=== PATIENT | male | born 1955 | race Caucasian/White ===

== ENCOUNTER 2022-08-03 17:10 | Emergency (ER) | payer MEDICARE, MEDICAID ==
[~2022-08-03] VITALS: Ht 175.3 cm; Wt 210.0 kg
[~2022-08-03 17:10] MED LIST: DILT-94 PO; DIPH-1055 PO; ENTE0.5T12 PO; GABA300C PO; HYDR-3972 PO; IBUP-1985 PO; LISI1TAB51 PO; LOPE2CAP PO; ONDA4TAB12 SL; SERT-434 PO; TRAZ-256 PO
[2022-08-03 17:20] VITALS: BP 116/70
--- NOTE | 2022-08-03 17:46 | NUR ---
attempt ekg, unable to locate patient at this time. will attempt again
[2022-08-03 17:52] LABS: BASOPHILS # (AUTO) 0.1 X10'3 (0-0.2); BASOPHILS % (AUTO) 1.4 % (0-1); EOSINOPHILS # (AUTO) 0.1 X10'3 (0-0.9); EOSINOPHILS % (AUTO) 2.5 % (0-6); HEMATOCRIT 42.7 % (42.0-52.0); HEMOGLOBIN 15.1 g/dl (14.0-17.9); LYMPHOCYTES # (AUTO) 1.9 X10'3 (1.1-4.8); LYMPHOCYTES % (AUTO) 37.4 % (21-51); MEAN CORPUSCULAR HGB CONC 35.3 g/dL (33.0-36.5); MEAN PLATELET VOLUME 6.8 FL (7.4-10.4); MONOCYTES # (AUTO) 0.5 X10'3 (0-0.9); MONOCYTES % (AUTO) 9.2 % (2-12); NEUTROPHILS # (AUTO) 2.5 X10'3 (1.8-7.7); NEUTROPHILS % (AUTO) 49.5 % (42-75); PLATELET COUNT 199 X10'3 (140-440); RED BLOOD COUNT 4.19 X10'6 (4.70-6.10); RED CELL DISTRIBUTION WIDTH 14.2 % (11.5-14.5)
[2022-08-03 18:08] LABS: ALANINE AMINOTRANSFERASE 22 U/L (12-78); ALBUMIN/GLOBULIN RATIO 1.2 (1.1-1.5); ALKALINE PHOSPHATASE 72 IU/L (46-116); ANION GAP 12 (8-16); ASPARTATE AMINO TRANSFERASE 19 U/L (10-37); BILIRUBIN,TOTAL 0.4 MG/DL (0.1-1.0); BLOOD UREA NITROGEN 13 MG/DL (7-18); BUN/CREATININE RATIO 11.5 (10.0-20.0); CALCIUM 9.1 MG/DL (8.5-10.1); CHLORIDE 98 MMOL/L (99-107); CREATININE 1.13 MG/DL (0.60-1.10); GLUCOSE 70 MG/DL (70-104); POTASSIUM 3.6 MMOL/L (3.5-5.1); SODIUM 134 MMOL/L (135-145); TOTAL CARBON DIOXIDE 23.6 MMOL/L (24-32); TOTAL PROTEIN 7.3 G/DL (6.4-8.2); eGFR 65 ML/MIN
[2022-08-03 19:39] LABS: CLARITY,URINE CLEAR (Clear); COLOR,URINE STRAW (Yellow); GLUCOSE, URINE NEGATIVE (Neg); KETONES,URINE NEGATIVE (Neg); LEUKOCYTE ESTERASE ,URINE NEGATIVE (Neg); NITRITES, URINE NEGATIVE (Neg); OCCULT BLOOD,URINE NEGATIVE (Neg); PH,URINE 5.5 (4.8-8.0); PROTEIN,URINE NEGATIVE (Neg); UROBILINOGEN,URINE 0.2 E.U/dL (0.2-1.0)
[2022-08-03 19:59] LABS: UA COLLECTION TYPE VOIDED
== END 2022-08-03 20:10 | disposition home or self-care (01) ==
LOC: ER 17:11
DX: R53.1 Weakness (principal); R05.9 Cough, unspecified; F31.9 Bipolar disorder, unspecified; F17.200 Nicotine dependence, unspecified, uncomplicated; I10 Essential (primary) hypertension; Z79.899 Other long term (current) drug therapy
CPT/HCPCS: 36415; 71045; 80053; 81003; 84484; 85025; 93005; 99285

== ENCOUNTER 2023-02-03 07:35 | Day surgery (SDC) | payer MEDICARE, MEDICAID ==
[2023-02-02 10:40] LABS: BASOPHILS % (AUTO) 0.7 % (0-1); EOSINOPHILS % (AUTO) 0.8 % (0-6); LYMPHOCYTES # (AUTO) 1.1 X10'3 (1.1-4.8); LYMPHOCYTES % (AUTO) 23.7 % (21-51); MEAN CORPUSCULAR HEMOGLOBIN 36.3 PG (27.0-31.0); MEAN CORPUSCULAR VOLUME 103.6 FL (78-98); MEAN PLATELET VOLUME 6.8 FL (7.4-10.4); MONOCYTES # (AUTO) 0.4 X10'3 (0-0.9); MONOCYTES % (AUTO) 8.2 % (2-12); NEUTROPHILS % (AUTO) 66.6 % (42-75); PRE OP HEMOGLOBIN 15.1 g/dL (14.0-17.9); PRE OP PLATELET COUNT 200 X10'3 (140-440); PRE OP WHITE BLOOD COUNT 4.5 10'3 (4.8-10.8); RED BLOOD COUNT 4.16 X10'6 (4.70-6.10); RED CELL DISTRIBUTION WIDTH 13.8 % (11.5-14.5)
[2023-02-02 10:54] LABS: ALBUMIN 4.1 G/DL (3.4-5.0); ALKALINE PHOSPHATASE 69 IU/L (46-116); BLOOD UREA NITROGEN 11 MG/DL (7-18); CALCIUM 9.1 MG/DL (8.5-10.1); CHLORIDE 97 MMOL/L (99-107); PRE OP ALT 19 U/L (30-65); PRE OP ANION GAP 9 (8-16); PRE OP AST 18 U/L (10-37); PRE OP BILIRUB, TOTAL 0.5 MG/DL (0.0-1.0); PRE OP GLUCOSE 97 MG/DL (70-104); PRE OP POTASSIUM 4.1 MMOL/L (3.4-5.1); PRE OP SODIUM 133 MMOL/L (135-145); TOTAL CARBON DIOXIDE 27.4 MMOL/L (24-32); TOTAL PROTEIN 8.1 G/DL (6.4-8.2); eGFR 75 ML/MIN
[~2023-02-03] VITALS: Ht 167.6 cm; Wt 57.2 kg
[2023-02-03] VITALS (7 sets, daily range): BP systolic 118–167; BP diastolic 72–88; PULSE 59–78; RESP 13–20; TEMP 97.5; O2SAT 95–100
[~2023-02-03 07:35] MED LIST changes: +ALBU18HF2; -DIPH-1055 PO; +FLUT1AER INH; -HYDR-3972 PO; -LOPE2CAP PO; -ONDA4TAB12 SL; +famotidine 20mg tablet PO ONE; +ringers solution, lacted 1,000 ML IV SCH
[2023-02-03] MEDS ORDERED: ringers solution, lacted 1,000 ML IV SCH (08:25)
[2023-02-03] MEDS ORDERED: labetalol 20mg/4ml (5mg/ml) syringe IV PRN (08:25)
[2023-02-03] MEDS ORDERED: ondansetron/PF 4mg/2ml inj IV PRN (08:25)
[2023-02-03] MEDS ORDERED: morphine 4 MG/ML inj SYRINge IV PRN (08:25)
[2023-02-03] MEDS ORDERED: morphine 2 MG/ML inj. syringe IV PRN (08:25)
[2023-02-03] MEDS ORDERED: fentaNYL/PF 50MCG/1 ML 2ML syringe ONE (09:40)
[2023-02-03] MEDS ORDERED: midazolam 1 mg/ML 2ml injection ONE (09:40)
[2023-02-03] MEDS ORDERED: rocuronium 10mg/ml inj IV ONE (10:15)
[2023-02-03] MEDS ORDERED: LIDOcaine 2% (20mg/ml) 5ml vial ONE (10:15)
[2023-02-03] MEDS ORDERED: propofol inj 20 ML IV ONE (10:15)
[2023-02-03] MEDS ORDERED: ondansetron/PF 4mg/2ml inj ONE (10:15)
== END 2023-02-03 12:20 | disposition home or self-care (01) ==
LOC: PAS 07:35
PROVIDERS: ATTEND Internal Medicine Critical Care Medicine
DX: R91.8 Other nonspecific abnormal finding of lung field (principal); C34.12 Malignant neoplasm of upper lobe, left bronchus or lung; F32.A Depression, unspecified; F41.9 Anxiety disorder, unspecified; J43.9 Emphysema, unspecified; I10 Essential (primary) hypertension; F17.210 Nicotine dependence, cigarettes, uncomplicated; M19.90 Unspecified osteoarthritis, unspecified site; Z86.19 Personal history of other infectious and parasitic diseases; Z79.899 Other long term (current) drug therapy
CPT/HCPCS: 31624; 31628; 31629; 31653; 36415; 71045; 71250; 80053; 82948; 85025; 87070; 93005; 94760; J2250; J2405; J2704; J3010; J3490; J7120; Z7506; Z7508; Z7512; 31623; 31625; 31626; 31627; 31635; 31654; 88172; 88173; 88305; 88341; 88342; A4618

== ENCOUNTER 2024-05-10 06:45 | Day surgery (SDC) | payer MEDICARE, MEDICAID ==
[~2024-05-10] VITALS: Ht 170.2 cm; Wt 69.1 kg
[2024-05-10] VITALS (12 sets, daily range): BP systolic 102–145; BP diastolic 60–97; PULSE 58–75; RESP 12–17; TEMP 97.9; O2SAT 96–99
[~2024-05-10 06:45] MED LIST changes: -famotidine 20mg tablet PO ONE; -ringers solution, lacted 1,000 ML IV SCH
[2024-05-10 07:26] LABS: BASOPHILS % (AUTO) 0.4 % (0-1); EOSINOPHILS # (AUTO) 0.3 X10'3 (0-0.9); EOSINOPHILS % (AUTO) 3.5 % (0-6); HEMATOCRIT 47.4 % (42.0-52.0); HEMOGLOBIN 16.3 g/dl (14.0-17.9); LYMPHOCYTES # (AUTO) 0.6 X10'3 (1.1-4.8); LYMPHOCYTES % (AUTO) 6.8 % (21-51); MEAN CORPUSCULAR HEMOGLOBIN 35.1 PG (27.0-31.0); MEAN CORPUSCULAR HGB CONC 34.4 g/dL (33.0-36.5); MEAN CORPUSCULAR VOLUME 101.9 FL (78-98); MONOCYTES # (AUTO) 0.7 X10'3 (0-0.9); NEUTROPHILS # (AUTO) 6.6 X10'3 (1.8-7.7); NEUTROPHILS % (AUTO) 80.3 % (42-75); PLATELET COUNT 192 X10'3 (140-440); RED BLOOD COUNT 4.65 X10'6 (4.70-6.10); RED CELL DISTRIBUTION WIDTH 14.3 % (11.5-14.5); WHITE BLOOD COUNT 8.2 X10'3 (4.5-11.0)
[2024-05-10] MEDS ORDERED: normal saline 1000ml 1,000 ML IV PRN (07:30)
[2024-05-10 07:40] LABS: APTT 25 SECONDS (22-32); PROTHROMBIN TIME 10.1 SECONDS (9.0-12.0)
[2024-05-10 08:00] LABS: ALANINE AMINOTRANSFERASE 20 U/L (12-78); ALBUMIN 3.8 G/DL (3.4-5.0); ALKALINE PHOSPHATASE 112 IU/L (46-116); ANION GAP 7 (8-16); ASPARTATE AMINO TRANSFERASE 18 U/L (10-37); BILIRUBIN,TOTAL 0.7 MG/DL (0.1-1.0); BLOOD UREA NITROGEN 12 MG/DL (7-18); CALCIUM 9.1 MG/DL (8.5-10.1); CHLORIDE 101 MMOL/L (99-107); GLUCOSE 103 MG/DL (70-104); SODIUM 137 MMOL/L (135-145); TOTAL CARBON DIOXIDE 28.7 MMOL/L (24-32); TOTAL PROTEIN 7.8 G/DL (6.4-8.2); eCRCL 66 ML/MIN; eGFR 74 ML/MIN
[2024-05-10] MEDS ORDERED: DILT120C77 PO (08:03)
[2024-05-10] MEDS ORDERED: GABA-1405 PO (08:04)
[2024-05-10] MEDS ORDERED: fentaNYL/PF 50MCG/1 ML 2ML syringe ONE (09:30)
[2024-05-10] MEDS ORDERED: midazolam 1 mg/ML 2ml injection ONE (09:30)
[2024-05-10] MEDS ORDERED: LIDOcaine 1% (10mg/ml) 2ml vial ONE (09:36)
== END 2024-05-10 11:15 | disposition home or self-care (01) ==
LOC: SSTAY O 06:45
PROVIDERS: ATTEND Nurse Practitioner Family
DX: R19.09 Other intra-abdominal and pelvic swelling, mass and lump (principal); C34.12 Malignant neoplasm of upper lobe, left bronchus or lung; Z79.01 Long term (current) use of anticoagulants; Z79.899 Other long term (current) drug therapy
CPT/HCPCS: 10009; 36415; 80053; 85025; 85610; 85730; A4615; J2003; J2250; J3010; J7030; 99152; 99153